=== PATIENT | male | born 1980 | race Two or more races ===

== ENCOUNTER 2023-01-12 08:29 | Emergency (ER) | payer BC, OTHER ==
[~2023-01-12] VITALS: Ht 167.6 cm; Wt 90.4 kg
[2023-01-12] MEDS ORDERED: OXYMETAZOLINE HCL 0.05 % NASAL SPRAY 15ML ONE (08:40)
[2023-01-12] MEDS ORDERED: OXYMETAZOLINE HCL 0.05 % NASAL SPRAY 15ML EACHNOSTRI ONE (09:00)
[2023-01-12 10:36] LABS: Basophils # (auto) 0 10 ^3/uL (0-0.2); Eosinophils # (auto) 0.2 10 ^3/uL (0-0.8); Hemoglobin 15.4 g/dL (13.5-17.5); Lymphocytes # (auto) 1.8 10 ^3/uL (0.4-5.4); Monocytes # (auto) 0.6 10 ^3/uL (0-1.3); White Blood Cell 8.8 10^3/uL (4.4-10.8)
[2023-01-12 10:38] LABS: Basophils % (auto) 0.5 % (0.0-2.0); Eosinophils % (auto) 1.7 % (0.0-7.0); Hematocrit 44.7 % (41.0-53.0); Lymphocytes % (auto) 20.9 % (10.0-50.0); Mean Corpuscular Hemoglobin 33.6 pg (28.0-32.0); Mean Corpuscular Hgb Conc. 34.4 g/dL (32.0-36.0); Mean Corpuscular Volume 97.6 fL (80.0-100.0); Monocytes % (auto) 7.4 % (0.0-12.0); Neutrophils # (auto) 6.1 10 ^3/uL (1.6-8.6); Neutrophils % (auto) 69.5 % (37.0-80.0); Nucleated Red Blood Cells % 0.4 %; Red Blood Cells 4.58 10^6/uL (4.5-5.90); Red Cell Distribution Width 13.1 % (11.8-14.3)
[2023-01-12 10:46] LABS: INR 1.09 (0.9-1.15); Prothrombin Time 11.4 sec (9.3-11.8)
[2023-01-12 11:19] LABS: Albumin 3.6 g/dL (3.4-5.0); Calcium 9.5 mg/dL (8.5-10.1)
[2023-01-12 11:25] LABS: Bilirubin, Total 0.5 mg/dL (0.2-1.0); Total Protein 8.2 g/dL (6.4-8.2)
[2023-01-12] MEDS ORDERED: CEPH250C PO (12:20)
[2023-01-12 13:23] VITALS: BP 153/101; PULSE 98; RESP 16; TEMP 97.4; O2SAT 95
== END 2023-01-12 13:24 | disposition home or self-care (01) ==
LOC: ER 08:29
DX: R04.0 Epistaxis (principal); E11.9 Type 2 diabetes mellitus without complications
CPT/HCPCS: 30901; 36415; 80053; 85025; 85610

== ENCOUNTER 2023-01-12 16:30 | Emergency (ER) | payer OTHER ==
[~2023-01-12] VITALS: Ht 167.6 cm; Wt 91.1 kg
[~2023-01-12 16:30] MED LIST: CEPH250C PO
[2023-01-12 23:35] VITALS: BP 146/97; PULSE 119; RESP 22; TEMP 97.7; O2SAT 97
== END 2023-01-12 23:48 | disposition short-term general hospital (02) ==
LOC: ER 16:30
DX: R04.0 Epistaxis (principal); E11.9 Type 2 diabetes mellitus without complications; Z79.899 Other long term (current) drug therapy
CPT/HCPCS: 82962; 93005